=== PATIENT | male | born 1990 | race Caucasian/White ===

== ENCOUNTER 2018-11-03 00:23 | Emergency (ER) | payer OTHER ==
[~2018-11-03] VITALS: Ht 177.8 cm; Wt 97.1 kg
[2018-11-03 00:27] VITALS: Ht 177.8 cm; Wt 97.1 kg
[2018-11-03 01:11] VITALS: BP 144/98
== END 2018-11-03 01:00 | disposition home or self-care (01) ==
LOC: ED 00:23
DX: S05.01XA Injury of conjunctiva and corneal abrasion without foreign body, right eye, initial encounter (principal); X58.XXXA Exposure to other specified factors, initial encounter; Y93.89 Activity, other specified; Y92.89 Other specified places as the place of occurrence of the external cause; Y99.8 Other external cause status